=== PATIENT | male | born 1980 | race Caucasian/White ===

== ENCOUNTER 2020-09-21 08:22 | Emergency (ER) | payer OTHER, SELFPAY ==
[2020-09-21 08:31] VITALS: BP 126/92; PULSE 71; RESP 20; TEMP 37.2; O2SAT 97
--- NOTE | 2020-09-21 09:03 | ED.URI ---
HPI - URI/Sore Throat General Chief Complaint: Upper Respiratory Infection Stated Complaint: head cold/fever Source: patient and family Mode of arrival: ambulatory History of Present Illness HPI Narrative: This is a 40-year-old male that presented to urgent care with complaints of having a fever of 101, stuffy nose and pressure in his ears. According to patient he nearly has cellulitis and is treated with antibiotic. Patient did take Tylenol for his fever which resolved. The patient denies SOB, CP, palpitation, extremity numbness, lightheadedness, dizziness, constipation, diarrhea, chills, or fever. MD elicited complaint: fever Related Data Home Medications Medication Instructions Recorded Confirmed eluxadoline [Viberzi] 75 mg PO BID 09/21/20 09/21/20 hyoscyamine sulfate 0.375 mg PO BID 09/21/20 09/21/20 Allergies Allergy/AdvReac Type Severity Reaction Status Date / Time Penicillins Allergy Unknown hives Verified 09/21/20 08:52 Chlorine Allergy Mild HIVES Uncoded 09/21/20 08:52 Review of Systems Review of Systems: A 14 organ system Review of Systems was performed and pertinent positives included in the HPI, otherwise remaining ROS is negative. [facility] Family History Family History Mother Family history of gastrointestinal disorder Sibling Patient's sister is in good health Patient's brother is in good health Father Patient's father is Social History Social History Smoking status: Former smoker Smoking end date: 02/17/15 Alcohol intake: current Exam Narrative: GENERAL: This is a well-nourished, well-developed patient, in no apparent distress. HEAD: normocephalic, atraumatic. Maxillary tenderness EYES: PERRL. Sclera clear/white. Vision is grossly intact. EARS: External ears normal, auditory canals clear and without drainage, TMs normal without perforation. Hearing grossly intact. NOSE: External nose normal with no obvious nasal discharge, nares without redness, no rhinorrhea. THROAT: Mucous membranes moist, posterior pharynx clear. NECK: Neck supple, non-tender without lymphadenopathy, masses or thyromegaly. CARDIOVASCULAR: Regular rate and rhythm without murmurs, gallops, or rubs. RESPIRATORY: Clear to auscultation. Breath sounds equal bilaterally. No wheezes, rales, or rhonchi. GASTROINTESTINAL: Abdomen soft, non-tender, nondistended. Bowel sounds are active. No hepato-splenomegaly, or palpable masses. No guarding. SKIN: warm, intact with no suspicious lesions or rash, good texture and turgor. NEURO: awake, alert, and oriented to person, place and time. There were no obvious focal neurologic abnormalities. Steady gait EXTREMITIES: Normal range of motion. No edema. No calf tenderness. Negative Homans sign bilaterally. BACK: Nontender without deformity or crepitance. No flank tenderness. Course Course Emergency Course: Patient will be given doxycycline 100 mg twice daily x10 days and use [id number] medications for congestion and fever Vital Signs Vital signs: Vital Signs Temperature 98.9 F 09/21/20 08:31 Pulse Rate 71 09/21/20 08:31 Respiratory Rate 20 09/21/20 08:31 Blood Pressure 126/92 H 09/21/20 08:31 Pulse Oximetry 97 09/21/20 08:31 Temperature 98.9 F 09/21/20 08:31 Pulse Rate 71 09/21/20 08:31 Respiratory Rate 20 09/21/20 08:31 Blood Pressure 126/92 H 09/21/20 08:31 Pulse Oximetry 97 09/21/20 08:31 MDM - URI/Sore Throat Differential Diagnosis Differential diagnosis: Likely upper respiratory infection, otitis media, sinusitis and pharyngitis Discharge Plan Discharge Clinical Impression: Sinusitis Qualifiers: Sinusitis location: maxillary Chronicity: acute Recurrence: recurrent Qualified Code(s): J01.01 - Acute recurrent maxillary sinusitis Patient Disposition: Home, Self-Care Condition: Stable Instructions:
== END 2020-09-21 09:04 | disposition home or self-care (01) ==
PROVIDERS: Emergency Provider Nurse Practitioner; PCP Internal Medicine
DX: J01.01 Acute recurrent maxillary sinusitis (principal); Z87.891 Personal history of nicotine dependence
CPT/HCPCS: 99213; G0463

== ENCOUNTER 2021-09-28 15:27 | Emergency (ER) | payer OTHER, SELFPAY ==
--- NOTE | ~2021-09-28 | XR_ITS ---
XR chest 1V portable DATE: 09/28/2021 16:00 INDICATION: Fever. Covid. TECHNIQUE: Portable upright AP chest on 09/28/2021 at 1550 hours COMPARISON: 11/28/2010 PA chest FINDINGS: Normal heart size. No hilar or mediastinal enlargement. No pulmonary infiltrate or consolid ation, pleural effusion or pulmonary vascular congestion or pneumothorax is detected. IMPRESSION: No active cardiac pulmonary disease Reviewed, dictated and finalized at location B.
[2021-09-28 15:29] VITALS: BP 147/90; PULSE 94; RESP 18; TEMP 37.4; O2SAT 96
--- NOTE | 2021-09-28 16:25 | ED.URI ---
HPI - URI/Sore Throat General Chief Complaint: Upper Respiratory Infection Stated Complaint: fever, covid positive Time Seen by Provider: 09/28/21 15:37 Source: patient, RN notes reviewed and old records reviewed Mode of arrival: ambulatory Limitations: no limitations History of Present Illness HPI Narrative: THis is a 41 year old male who presents for evaluation of fever and body aches. Patient states 10 days ago he was diagnosed with COVID . At that time he was having chills, fever, body aches and sore throat. He was prescribed paxlovid and he has finished that medication. He has been feeling well for 2 days and his symptoms returned last night. He reports body aches, fever, and sore throat. He denies abdominal pain, nausea, vomiting, abdominal pain, sob, chest pain. He denies any other symptoms to such new infection. He reports mild cough from sinus drainage. He took jocelyn seltzer cold and flu this morning at 7 am. Related Data Home Medications Medication Instructions Recorded Confirmed eluxadoline 75 mg tablet (Viberzi) 75 mg PO BID 09/21/20 04/18/21 hyoscyamine sulfate 0.375 mg 0.375 mg PO BID 09/21/20 04/18/21 tablet,extended release,12 hr Allergies Allergy/AdvReac Type Severity Reaction Status Date / Time Penicillins Allergy Unknown hives Verified 04/18/21 09:29 Chlorine Allergy Mild HIVES Uncoded 04/18/21 09:29 Review of Systems Review of Systems: All systems reviewed & are unremarkable except as noted in HPI and below Constitutional: Constitutional: Reports chills, Denies fatigue and Reports fever(s) ENT: Reports nasal congestion and Reports sore throat Cardiovascular: Cardiovascular: Denies chest pain and Denies rapid heart rate Respiratory: Respiratory: Denies chest congestion, Denies cough and Denies dyspnea Gastrointestinal: Gastrointestinal: Denies abdominal pain, Denies bloating, Denies nausea and Denies vomiting Integumentary/Breasts: Skin/Breast: Denies erythema and Denies rash PMFSH Past Medical History Medical History COVID-19 Family History Family History Mother Family history of gastrointestinal disorder Sibling Patient's sister is in good health Patient's brother is in good health Father Patient's father is Social History Social History Smoking status: Former smoker Smoking end date: 02/17/15 Alcohol intake: current Gender identity (if verbalized by the patient): Male Exam Narrative: GENERAL: Well-appearing, well-nourished, and in no acute distress. HEAD: Normocephalic, atraumatic EYES: PERRLA and EOMI, conjunctiva clear without discharge EARS: TM's clear bilaterally without erythema or dullness NOSE: Nares clear, no rhinorrhea or epistaxis THROAT:Mucous membranes moist, Oropharynx normal without erythema, exudate, peritonsillar swelling or fluctuance NECK: Supple, without lymphadenopathy or mass RESPIRATORY: No respiratory distress, Airway patent, Respirations non-labored, Clear to auscultation without rales, rhonchi or wheeze HEART: Regular rate and rhythm. No murmur heard. Normal peripheral pulses. ABDOMEN: Soft, nontender, nondistended, normal active bowel sounds. No masses. No rebound or guarding, No organomegaly. EXTREMITIES: No edema, normal strength with full range of motion. SKIN: Warm, dry, normal color without rash NEURO: Alert and oriented x3. CN 2-12 grossly intact. No focal deficits. PSYCH: Normal mood and affect. Course Reevaluation(s) Reevaluation #1: I Discussed with patient that he likely has rebound symptoms of covid. Vitals are stable. Will discharge. Date: 09/28/21 Time: 16:32 Vital Signs Vital signs: Vital Signs Temperature 99.4 F 09/28/21 15:29 Pulse Rate 94 09/28/21 15:29 Respiratory Rate 18 09/28/21 15:29 Blood Pr
[2021-09-28 16:40] VITALS: BP 140/88; PULSE 98; RESP 18; O2SAT 97
== END 2021-09-28 16:48 | disposition home or self-care (01) ==
LOC: ANHED 16:40
PROVIDERS: Emergency Provider General Practice; PCP Internal Medicine
DX: U07.1 COVID-19 (principal); Z87.891 Personal history of nicotine dependence
CPT/HCPCS: 71045; 87081; 87880; 99283

== ENCOUNTER 2021-12-31 09:08 | Emergency (ER) | payer OTHER, SELFPAY ==
--- NOTE | 2021-12-31 09:13 | ED_ITS ---
HPI - URI/Sore Throat General Stated Complaint: Vomiting, Fever Related Data Home Medications Medication Instructions Recorded Confirmed eluxadoline 75 mg tablet (Viberzi) 75 mg PO BID 09/21/20 04/18/21 hyoscyamine sulfate 0.375 mg 0.375 mg PO BID 09/21/20 04/18/21 tablet,extended release,12 hr Allergies Allergy/AdvReac Type Severity Reaction Status Date / Time Penicillins Allergy Unknown hives Verified 04/18/21 09:29 Chlorine Allergy Mild HIVES Uncoded 04/18/21 09:29 [facility] Past Medical History Medical History COVID-19 Family History Family History Mother Family history of gastrointestinal disorder Sibling Patient's sister is in good health Patient's brother is in good health Father Patient's father is Social History Social History Smoking status: Former smoker Smoking end date: 02/17/15 Alcohol intake: current Gender identity (if verbalized by the patient): Male Discharge Plan Discharge Prescriptions: No Action hyoscyamine sulfate 0.375 mg tablet extended release 12 hr 0.375 mg PO BID Viberzi 75 mg tablet 75 mg PO BID doxycycline hyclate 100 mg capsule 100 mg PO Q12H 10 Days Qty: 20 0RF testosterone [AndroGel] 20.25 mg/1.25 gram (1.62 %) gel in metered-dose pump 2 pump topical DAILY Qty: 75 2RF Rx Instructions: apply 1 pump amount over max area of EACH upper arm and shoulder Follow-up/Referrals: Rob Garcia, [Primary Care Provider] -
[2021-12-31 09:18] VITALS: BP 127/89; PULSE 87; RESP 16; TEMP 37.2; O2SAT 99
--- NOTE | 2021-12-31 10:11 | ED.NAVMDI ---
HPI - Nausea/Vomiting/Diarrhea General Chief complaint: Nausea/Vomiting/Diarrhea Stated complaint: Vomiting, Fever Time Seen by Provider: 12/31/21 10:10 Source: patient and RN notes reviewed Mode of arrival: ambulatory Limitations: no limitations History of Present Illness HPI Narrative: 41-year-old male presents with concern for fever, chills, sweats, body aches, nausea, vomiting, diarrhea. He reports symptoms started on Friday. Reports he has not vomited since yesterday he reports he is having frequent diarrhea. Reports some nasal congestion rhinorrhea. Denies cough, sore throat shortness breath headache MD elicited complaint: nausea, vomiting and diarrhea Related Data Allergies Allergy/AdvReac Type Severity Reaction Status Date / Time Penicillins Allergy Unknown hives Verified 12/31/21 09:55 Review of Systems Review of Systems: CONSTITUTIONAL: Reports malaise, chills, sweats, or fever. ENT: Denies rhinorrhea, congestion, sinus pain, otalgia or sore throat. CARDIOVASCULAR: Denies chest pain, palpitations, or edema. RESPIRATORY: Denies cough or dyspnea. GASTROINTESTINAL: Denies abdominal pain, bloody, or mucous stools. Reportsnausea, vomiting, diarrhea GENITOURINARY: Denies dysuria or hematuria. MUSCULOSKELETAL: Reports myalgia. NEUROLOGIC: Denies headache. All systems reviewed & are unremarkable except as noted in HPI and below PMFSH Past Medical History Medical History COVID-19 Family History Family History Mother Family history of gastrointestinal disorder Sibling Patient's sister is in good health Patient's brother is in good health Father Patient's father is Social History Social History Smoking status: Former smoker Smoking end date: 02/17/15 Alcohol intake: current Gender identity (if verbalized by the patient): Male Comments At time of signature, agree with nursing past medical, surgical, social and family history. There is no relevant family history pertinent to the presenting complaint Exam Narrative: GENERAL: Well-appearing, well-nourished, and in no acute distress. HEAD: Normocephalic, atraumatic. EYES: PERRLA, conjunctivae clear, and EOMI. ENT: Nares clear, turbinates pink, no rhinorrhea or epistaxis. Mucous membranes moist. Oropharynx without edema, erythema, or lesions. Tonsils not enlarged and without exudate. NECK: Supple. No lymphadenopathy CHEST: Speaks in full sentences. No respiratory distress. HEART: Regular rate and rhythm. ABDOMEN: Soft, flat, nondistended, nontender. No guarding, rebound tenderness, or rigidity. No pulsatile masses. Bowel sounds present in all four quadrants. No organomegaly. Negative Saba?s sign. No periumbilical tenderness. No Supra public tenderness or distension. SKIN: Warm, dry, no rash. NEURO: Alert and oriented x3. PSYCH: Normal mood and affect Course Course Emergency Course: Patient is aware of diagnosis, understands and agrees to treatment plan. Anticipatory guidance given. Patient agrees to follow-up as directed and is aware of reasons to seek care at the emergency department. Portions of this record may have been created with voice recognition software Level of Care: Express Care Visit Vital Signs Vital signs: Vital Signs Temperature 98.9 F 12/31/21 09:18 Pulse Rate 87 12/31/21 09:18 Respiratory Rate 16 12/31/21 09:18 Blood Pressure 127/89 12/31/21 09:18 Pulse Oximetry 99 12/31/21 09:18 Oxygen Delivery Room Air 12/31/21 09:18 Temperature 98.9 F 12/31/21 09:18 Pulse Rate 87 12/31/21 09:18 Respiratory Rate 16 12/31/21 09:18 Blood Pressure 127/89 12/31/21 09:18 Pulse Oximetry 99 12/31/21 09:18 Oxygen Delivery Room Air 12/31/21 09:18 Reviewed. MDM - Nausea/Vomiting/Diarrhea MDM Narrative Medi
== END 2021-12-31 10:43 | disposition home or self-care (01) ==
PROVIDERS: Emergency Provider Nurse Practitioner; PCP Internal Medicine
DX: R11.2 Nausea with vomiting, unspecified (principal); R19.7 Diarrhea, unspecified; Z87.891 Personal history of nicotine dependence; Z86.16 Personal history of COVID-19
CPT/HCPCS: 87804; 99213; G0463

== ENCOUNTER 2023-09-16 08:47 | Outpatient (CLI) | payer OTHER, SELFPAY ==
[2023-09-16 09:36] LABS: Hematocrit 42.1 % (42.0-52.0); Hemoglobin 13.8 g/dL (14.0-18.0); Mean Corpuscular HGB Conc 32.8 g/dl (32-36); Mean Corpuscular Hemoglobin 28.9 pg (26-34); Mean Corpuscular Volume 88.3 fl (80-100); Mean Platelet Volume 9.9 fl (7.4-10.4); Platelet Count Result 256 k/mm3 (150-375); Red Blood Count 4.77 M/mm3 (4.6-6.20); Red Cell Distribution Width 13.5 % (11.5-14.5); White Blood Count 7.6 K/mm3 (4.5-10.0)
[2023-09-16 10:03] LABS: Alanine Aminotransferase 30 U/L (6-50); Albumin Level 4.2 g/dL (3.5-5.1); Alkaline Phosphatase 104 U/L (38-126); Anion Gap 9 mmol/L (4-12); Aspartate Amino Transferase 29 U/L (17-59); Bilirubin,Total 0.8 mg/dL (0.2-1.3); Blood Urea Nitrogen 18 mg/dL (9-20); Carbon Dioxide 29 mmol/L (22-30); Chloride 101 mmol/L (98-107); Cholesterol 185 mg/dL (0-200); Estimated Glomerular Filt Rate > 60; Glucose 93 mg/dL (65-110); HDL Direct 36 mg/dL; Potassium 4.1 mmol/L (3.4-5.0); Sodium 139 mmol/L (137-145); Triglycerides 201 mg/dL (<150)
[2023-09-16 10:14] LABS: LDL Cholesterol Direct 103 mg/dL
[2023-09-16 10:32] LABS: Vitamin D 25 Hydroxy 35.4 ng/mL
[2023-09-16 10:46] LABS: Hemoglobin A1C 5.9 % (<5.7)
[2023-09-17 05:13] LABS: FSH 3.6 mIU/mL (1.4-12.8); LH 1.9 mIU/mL (1.5-9.3); Sex Hormone Binding Globulin 13 nmol/L (10-50)
[2023-09-19 19:03] LABS: Testosterone Free 48 pg/mL (35.0-155.0); Testosterone Total 213 ng/dL (250-1100)
== END 2023-09-16 08:48 | disposition home or self-care (01) ==
LOC: ANHLAB 08:49
PROVIDERS: PCP Family Medicine; Visit Provider Family Medicine
DX: Z00.00 Encounter for general adult medical examination without abnormal findings (principal); E66.9 Obesity, unspecified; G47.10 Hypersomnia, unspecified; R79.89 Other specified abnormal findings of blood chemistry; R53.83 Other fatigue; R73.03 Prediabetes
CPT/HCPCS: 36415; 80053; 80061; 82306; 83001; 83002; 83036; 84270; 84402; 84403; 85027

== ENCOUNTER 2024-03-18 08:10 | Emergency (ER) | payer OTHER, SELFPAY ==
--- NOTE | ~2024-03-18 | XR_ITS ---
EXAMINATION: XR chest 2V 03/18/2024 08:37 INDICATION: Cough for 4 days PROCEDURE: 2 view chest COMPARISON: 09/28/2021 FINDINGS: The lungs are clear. The cardiomediastinal silhouette is within normal limits. There are no pleural effusions. There is no pneumothorax suspected. IMPRESSION: 1: NO ACUTE CARDIOPULMONARY DISEASE. Reviewed, dictated and finalized at location A. [employer]
--- NOTE | 2024-03-18 08:13 | ED.URI ---
HPI - URI/Sore Throat General Chief Complaint: Upper Respiratory Infection Stated Complaint: FEVER/COUGH Time Seen by Provider: 03/18/24 08:24 Source: patient, RN notes reviewed and old records reviewed Mode of arrival: ambulatory Limitations: no limitations History of Present Illness HPI Narrative: 44-year-old male presents to the [facility] with complaints of cough and fever that started on Friday, 4 days ago. Reports a fever 101.4. Has been taking cold medicine as well as Advil and acetaminophen. Onset (ago): day(s) (4) Related Data Allergies Allergy/AdvReac Type Severity Reaction Status Date / Time Penicillins Allergy Unknown hives Verified 03/18/24 08:20 Review of Systems Review of Systems: All systems reviewed & are unremarkable except as noted in HPI and below Constitutional: Constitutional: Reports as per HPI, Reports body ache(s) and Reports fever(s) ENT: Reports system reviewed and no additional complaints, except as documented Cardiovascular: Cardiovascular: Reports no additional cardiovascular complaints, Denies chest pain and Denies dyspnea Respiratory: Respiratory: Reports as per HPI, Denies chest congestion, Reports cough and Denies dyspnea Musculoskeletal: Musculoskeletal: Reports no additional musculoskeletal complaints Integumentary/Breasts: Skin/Breast: Reports system reviewed and no additional complaints, except as docu PMFSH Past Medical History Medical History Obesity IBS (irritable bowel syndrome) Dyslipidemia Impaired glucose tolerance COVID-19 Low testosterone Family History Family History Mother Family history of gastrointestinal disorder Sibling Patient's sister is in good health Patient's brother is in good health Father Patient's father is Social History Social History Smoking status: Current every day smoker Tobacco type: e-cigarettes/vaping Smokeless tobacco user: chewing tobacco Smoking end date: 02/17/15 Alcohol intake: current Lack of Transportation: No Lack of Food: Never True Current Housing: Decline to Answer Concerned About Future Housing: No Difficulty Paying Gas/Electric Bills: No Difficulty Paying for Meds: No Currently Unemployed: No Education: Associate Degree Difficulty w/ Childcare or Family Care: No Living arrangements: with family Occupation/Education: occupation Gender identity (if verbalized by the patient): Male Sexual Orientation (if Verbalized by the Patient): Straight or Heterosexual Comments At the time of my signature, I reviewed and agree with the nursing past medical, surgical, social, and family history. There is no relevant family history pertinent to the patient complaint. Exam Const: General: cooperative, healthy appearing, comfortable, no acute distress, well developed, alert and well nourished Nutritional Appearance: well nourished Orientation/consciousness: patient oriented x3 Limitations: no limitations HENMT: Head: normal to inspection Ears: hearing grossly normal bilaterally, external ears normal, TM's normal bilaterally, EAC's normal, mastoids normal and no periauricular adenopathy Mouth: Yes Normal oral and palatal mucosa present, Yes lip normal, Yes tongue normal and Yes moist mucous membranes Throat: posterior oropharynx normal, uvula midline and no uvular edema Eyes: General: appearance normal, both eyes and all related structures Alignment and Position: alignment normal Neck: Neck: normal visual inspection, full ROM, no lymphadenopathy and no meningeal signs Chest: Chest palpation & inspection: normal inspection of the chest Resp: Effort & Inspection: normal respiratory effort and able to speak in complete sentences Auscultation: clear to auscultation bilaterally, no crackles, no rales, no rhonchi and no wheezes Cardio: Rate: regular rate Skin: General skin exam: normal color and no rashes or lesions noted Neuro: General: patient oriented x3, gait normal, moves all extremities and no meningeal signs Cognition (Neuro): normal cognition Speech: normal speech Gait exam (Neuro): Normal gait present Extrem: General: normal to inspection, full ROM, capillary refill normal and normal gait Psych: Appearance: grossly normal and well kempt Mental Status: mental status grossly normal Speech and movement: Normal speech and movement present and Clear speech present Affect: normal affect Attitude: cooperative Course Course Level of Care: Express Care Visit Vital Signs Vital signs: Vital Signs Temperature 97.3 F L 03/18/24 08:22 Pulse Rate 76 03/18/24 08:22 Respiratory Rate 16 03/18/24 08:22 Blood Pressure 134/94 H 03/18/24 08:22 Pulse Oximetry 98 03/18/24 08:22 Temperature 97.3 F L 03/18/24 08:22 Pulse Rate 76 03/18/24 08:22 Respiratory Rate 16 03/18/24 08:22 Blood Pressure 134/94 H 03/18/24 08:22 Pulse Oximetry 98 03/18/24 08:22 Reviewed MDM - URI/Sore Throat MDM Narrative Medical decision making narrative: Patient sitting in exam room. Nontoxic, vitals stable. Patient in no acute distress. Patient presents with 4 day history of cough and fever. Patient is influenza A positive Influenza B negative, COVID negative, chest x-ray negative for acute findings Patient appropriate for outpatient treatment and follow-up Discharge instructions reviewed with patient, as well as provided in writing per nursing staff. The instructions also include specific and strict return/GO TO THE ER as well as f/u information. All questions have been answered, and the patient deny any further questions with discharge and discharge plan. Some parts of this dictation were generated by voice recognition software and may contain typographical and/or grammatical inaccuracies. Differential Diagnosis Differential diagnosis: Likely upper respiratory infection, otitis media, sinusitis, viral infection, bronchitis and influenza Lab Data Labs: Lab Results 03/18/24 Range/Units 08:41 POC Influenza A Ag Negative (Negative) POC Influenza B Ag Positive (Negative) POC SARS CoV-2 Ag Negative (Negative) patient is Flu A positive. NOT flu B Imaging Data Radiologist's impression: EXAMINATION: XR chest 2V 03/18/2024 08:37 INDICATION: Cough for 4 days PROCEDURE: 2 view chest COMPARISON: 09/28/2021 FINDINGS: The lungs are clear. The cardiomediastinal silhouette is within normal limits. There are no pleural effusions. There is no pneumothorax suspected. IMPRESSION: 1: NO ACUTE CARDIOPULMONARY DISEASE. Critical Care Time Critical Care Time Critical Care Time: No Discharge Plan Discharge Clinical Impression: Influenza A Patient Disposition: Home, Self-Care Condition: Stable Instructions: Antibiotic Form, Influenza (DC) Additional Instructions: Your rapid COVID test were negative Your rapid flu test was positive for influenza A Your symptoms are due to a viral illness, which is not treated with antibiotics. Typically viral infections last 7-10 days, can linger for couple of weeks. It is very important to treat your symptoms. Drink plenty of water, Gatorade, Pedialyte, ice pops or Jell-O. -Alternate Tylenol and Motrin per package directions for fever or pain. You can alternate every 4 hours -Antihistamine medication such as Zyrtec/Claritin/[place] during the day can help improve symptoms. -doing daily nasal irrigations can help relieve pressure your sinuses. Things like a Neti pot -Use Flonase twice a day for 5 days then daily to help reduce the inflammation and dry up your sinuses. -You can also use Mucinex. Be sure to drink plenty of water with this medication at least 8 ounces with every dose and it is important to drink 8 to 10 glasses of water per day. Water is a natural decongestant -Eat and drink things that are easy to swallow, like tea or soup, or popsicles. -Oral rinses such as: Salt water gargles and/or may use topical anesthetic (eg. Chloraseptic spray) or lozenges to relieve dryness or throat pain). -Frequent hand washing or hand sugar plantation manager is one of the best ways to prevent spread of infection. -Using a vaporizer or humidifier at night will also help thin secretions and help with coughing up phlegm. -Follow up with primary care provider in 7-10 days if condition is not improving - For new or worsening symptoms go directly to the nearest ER Patient Language: Pashto Prescriptions: No Action escitalopram oxalate [Lexapro] 10 mg tablet 10 mg PO DAILY Qty: 30 6RF Follow-up/Referrals: Amor Momin MD [Primary Care Provider] - 2 Weeks ([facility] care follow up ) Stand Alone Forms: Work/School Release IP Time of Disposition: 09:04
[2024-03-18 08:22] VITALS: BP 134/94; PULSE 76; RESP 16; TEMP 36.3; O2SAT 98
[2024-03-18 08:43] LABS: EDCOVIDSCREEN Negative (Negative)
[2024-03-18 09:28] LABS: EDINFLUASCREEN Positive (Negative)
[2024-03-18 09:29] LABS: EDINFLUBSCREEN Negative (Negative)
== END 2024-03-18 09:15 | disposition home or self-care (01) ==
PROVIDERS: Emergency Provider Nurse Practitioner; PCP Family Medicine
DX: J10.1 Influenza due to other identified influenza virus with other respiratory manifestations (principal); E78.49 Other hyperlipidemia; F17.290 Nicotine dependence, other tobacco product, uncomplicated; Z20.822 Contact with and (suspected) exposure to COVID-19
CPT/HCPCS: 71046; 87426; 87804; 99213; G0463